=== PATIENT | male | born 1970 | race Native Hawaiian/Other Pacific Islander ===

== ENCOUNTER 2016-05-22 09:32 | Outpatient (CLI) | payer BC | END 2016-05-22 19:08 | disposition home or self-care (01) | LOC: LABW 09:32 | DX: K52.89 Other specified noninfective gastroenteritis and colitis (principal); Z85.47 Personal history of malignant neoplasm of testis | CPT/HCPCS: 36415; 82105; 84702; 87045; 87205; 87328; 87329; 87493; 87798; 87899 ==

== ENCOUNTER 2016-05-25 14:25 | Outpatient (CLI) | payer BC | END 2016-05-25 19:20 | disposition home or self-care (01) | LOC: US 14:25 | DX: R10.11 Right upper quadrant pain (principal) ==

== ENCOUNTER 2016-05-28 13:44 | Outpatient (CLI) | payer BC | END 2016-05-28 20:20 | disposition home or self-care (01) | LOC: NM 13:44 | DX: R10.11 Right upper quadrant pain (principal) | CPT/HCPCS: A9537 ==

== ENCOUNTER 2016-06-09 08:22 | Outpatient (CLI) | payer BC | END 2016-06-09 19:05 | disposition home or self-care (01) | LOC: CT 08:22 | DX: C62.11 Malignant neoplasm of descended right testis (principal); R10.84 Generalized abdominal pain; R19.7 Diarrhea, unspecified; R63.4 Abnormal weight loss | CPT/HCPCS: 36415; 82565; 84520; Q9963 ==

== ENCOUNTER 2016-07-27 07:56 | Outpatient (CLI) | payer BC | END 2016-07-27 09:00 | disposition home or self-care (01) | LOC: MRI 07:56 | DX: M54.6 Pain in thoracic spine (principal) ==

== ENCOUNTER 2019-04-11 08:31 | Outpatient (CLI) | payer BC | END 2019-04-11 19:45 | disposition home or self-care (01) | LOC: MRI 08:31 | DX: H93.12 Tinnitus, left ear (principal) | CPT/HCPCS: A9576 ==

== ENCOUNTER 2019-07-06 08:35 | Outpatient (CLI) | payer BC, OTHER | END 2019-07-06 22:52 | disposition home or self-care (01) | LOC: LAB 08:35 | DX: Z20.828 Contact with and (suspected) exposure to other viral communicable diseases (principal) | CPT/HCPCS: 87635; G2023; U0002 ==

== ENCOUNTER 2019-10-19 10:47 | Outpatient (CLI) | payer BC ==
[2019-10-19 11:14] LABS: PLATELET COUNT 171 K/uL (142-355)
[2019-10-19 11:19] LABS: POTASSIUM 3.9 mmol/L (3.6-5.2)
== END 2019-10-19 21:49 | disposition home or self-care (01) ==
LOC: LABW 10:47
PROVIDERS: Internal Medicine Hematology & Oncology
DX: C62.11 Malignant neoplasm of descended right testis (principal)
CPT/HCPCS: 36415; 80053; 82105; 85027

== ENCOUNTER 2020-04-08 14:13 | Outpatient (CLI) | payer BC | END 2020-04-08 19:29 | disposition home or self-care (01) | LOC: RESP 14:13 | PROVIDERS: ATTEND Internal Medicine Sleep Medicine | DX: R06.02 Shortness of breath (principal) ==

== ENCOUNTER 2020-10-17 09:35 | Outpatient (CLI) | payer BC ==
[2020-10-17 10:09] LABS: PLATELET COUNT 156 K/uL (142-355)
[2020-10-17 10:49] LABS: POTASSIUM 4.4 mmol/L (3.6-5.2)
== END 2020-10-17 22:12 | disposition home or self-care (01) ==
LOC: LABW 09:35
PROVIDERS: ATTEND Physician Assistant
DX: Z01.84 Encounter for antibody response examination (principal); E11.9 Type 2 diabetes mellitus without complications; Z85.47 Personal history of malignant neoplasm of testis; R53.83 Other fatigue; R63.5 Abnormal weight gain; E55.9 Vitamin D deficiency, unspecified
CPT/HCPCS: 36415; 80053; 80061; 82105; 82306; 82607; 84153; 84403; 84439; 84443; 84481; 85027; 86769

== ENCOUNTER 2021-02-06 09:30 | Outpatient (CLI) | payer BC | END 2021-02-06 19:22 | disposition home or self-care (01) | LOC: MRI 09:30 | PROVIDERS: ATTEND Orthopaedic Surgery | DX: M54.12 Radiculopathy, cervical region (principal) ==

== ENCOUNTER 2021-03-27 15:28 | Outpatient (CLI) | payer BC | END 2021-03-27 19:19 | disposition home or self-care (01) | LOC: RAD 15:28 | PROVIDERS: ATTEND Neurological Surgery | DX: M47.22 Other spondylosis with radiculopathy, cervical region (principal) ==

== ENCOUNTER 2022-07-02 08:07 | Outpatient (CLI) | payer BC ==
[2022-07-02 08:41] LABS: PLATELET COUNT 158 K/uL (142-355)
[2022-07-02 09:25] LABS: POTASSIUM 4.3 mmol/L (3.6-5.2)
== END 2022-07-02 20:45 ==
LOC: LABW 08:07
PROVIDERS: ATTEND Physician Assistant
DX: G89.29 Other chronic pain (principal); R53.83 Other fatigue; Z85.47 Personal history of malignant neoplasm of testis; R19.7 Diarrhea, unspecified; Z08 Encounter for follow-up examination after completed treatment for malignant neoplasm
CPT/HCPCS: 36415; 80053; 80061; 82105; 82306; 82607; 84153; 84402; 84403; 84436; 84443; 84480; 84702; 85027